=== PATIENT | male | born 2000 | race Hispanic/Latino ===

== ENCOUNTER 2020-09-13 19:08 | Emergency (ER) | payer OTHER ==
[~2020-09-13] VITALS: Ht 160 cm; Wt 54.9 kg
[2020-09-13] MEDS ORDERED: MORPHINE SULFATE 2 MG/ML SYR 1ML IV STA ×3 (20:13→23:04)
[2020-09-13] MEDS ORDERED: SODIUM CHLORIDE 0.9% 1000ML 1,000 ML IV STA (20:13)
[2020-09-13] MEDS ORDERED: ONDANSETRON HCL INJ 2MG/ML 2ML 2 MG/ML VIAL IV STA ×2 (20:13→22:00)
[2020-09-13] MEDS ORDERED: SODIUM CHLORIDE 0.9% 50ML 50 ML ONE (20:30)
[2020-09-13] MEDS ORDERED: IOPAMIDOL 370 MG/ML 200 ML INFUS..BTL INJ ONE (20:31)
[2020-09-13] MEDS ORDERED: MORPHINE SULFATE INJ 4 MG/ML INJ 1ML ONE ×2 (20:45→22:13)
[2020-09-13] MEDS ORDERED: ONDANSETRON HCL INJ 2MG/ML 2ML 2 MG/ML VIAL ONE ×2 (20:45→22:11)
[2020-09-13] MEDS ORDERED: SODIUM CHLORIDE 0.9% 1000ML 1,000 ML ONE (20:46)
[2020-09-13] MEDS ORDERED: DICYCLOMINE HCL10 MG PO (22:04)
[2020-09-13] MEDS ORDERED: ZOFRAN4 MG PO (22:04)
[2020-09-13 22:24] VITALS: BP 118/64
[2020-09-14] MEDS ORDERED: LEVSIN-SL0.125 MG SL (22:54)
== END 2020-09-13 22:24 | disposition home or self-care (01) ==
LOC: EDBD 19:08 → FSED 19:30
DX: R10.32 Left lower quadrant pain (principal); R11.2 Nausea with vomiting, unspecified
CPT/HCPCS: 74177; 80048; 80076; 81003; 85025; 96374; 96375; 96376; 99284; J2270 ×2; J2405; J7030; Q9967

== ENCOUNTER 2020-09-14 19:26 | Emergency (ER) | payer OTHER ==
[~2020-09-14 19:26] MED LIST: DICYCLOMINE HCL10 MG PO; ZOFRAN4 MG PO
[2020-09-14] MEDS ORDERED: CEFTRIAXONE SOD 1 GM VIAL IM ONE (20:30)
[2020-09-14] MEDS ORDERED: KETOROLAC TROMETHAMINE 60 MG/2 ML VIAL IM ONE (20:30)
[2020-09-14] MEDS ORDERED: ONDANSETRON HCL 4 MG ORAL DISINTEGRATING TAB PO ONE (20:30)
[2020-09-14] MEDS ORDERED: DICYCLOMINE HCL 20 MG/2 ML VIAL IM ONE (20:51)
[2020-09-14] MEDS ORDERED: ONDANSETRON HCL 4 MG ORAL DISINTEGRATING TAB ONE (20:51)
[2020-09-14] MEDS ORDERED: KETOROLAC TROMETHAMINE 30 MG/ML VIAL ONE (20:52)
[2020-09-14] MEDS ORDERED: CEFTRIAXONE SOD 1 GM VIAL ONE (20:52)
[2020-09-14] MEDS: DICYCLOMINE HCL 20 MG/2 ML VIAL IM ONE ×2 (20:54→22:54)
[2020-09-14] MEDS ORDERED: DIATRIZOATE MEGL/DIATRIZOA SOD 30 ML BTL PO ONE (21:12)
[2020-09-14] MEDS ORDERED: SODIUM CHLORIDE 0.9% 1000ML 1,000 ML IV STA (21:41)
[2020-09-14] MEDS ORDERED: KETOROLAC TROMETHAMINE 30 MG/ML VIAL IV STA (21:41)
[2020-09-14] MEDS ORDERED: CEFTRIAXONE SOD 1 GM VIAL IV ONE (21:45)
[2020-09-14] MEDS ORDERED: CEFTRIAXONE SOD 1 GM/NS 50 ML 50 ML IV ONE (21:56)
[2020-09-14] MEDS ORDERED: LEVSIN-SL0.125 MG SL (22:54)
[2020-09-14 23:10] VITALS: BP 109/52
== END 2020-09-14 23:10 | disposition home or self-care (01) ==
LOC: FSED 19:45
DX: R10.32 Left lower quadrant pain (principal); R50.9 Fever, unspecified; R11.2 Nausea with vomiting, unspecified
CPT/HCPCS: 74176; 80048; 80076; 81003; 85025; 96374; 99284; J0500; J0696 ×2; J1885; Q0162

== ENCOUNTER 2021-01-21 03:07 | Emergency (ER) | payer OTHER ==
[~2021-01-21] VITALS: Ht 160 cm; Wt 57.2 kg
[~2021-01-21 03:07] MED LIST changes: +LEVSIN-SL0.125 MG SL; +VANCOCIN HCL125 MG PO
== END 2021-01-21 05:45 | disposition home or self-care (01) ==
LOC: MERGE 03:42 → FSED 03:42
DX: S60.222A Contusion of left hand, initial encounter (principal); Y04.0XXA Assault by unarmed brawl or fight, initial encounter; Y92.89 Other specified places as the place of occurrence of the external cause
CPT/HCPCS: 99283